=== PATIENT | female | born 1980 | race Caucasian/White ===

== ENCOUNTER 2022-11-04 19:21 | Emergency (ER) | payer OTHER, SELFPAY ==
[2022-11-04 19:23] VITALS: BP 159/109; PULSE 86; RESP 18; TEMP 35.9; O2SAT 98
--- NOTE | 2022-11-04 20:10 | RAD_ITS ---
INDICATION: chest pain EXAMINATION/TECHNIQUE: X-RAY - XR Chest 1 View COMPARISON: None. FINDINGS: LINES/DEVICES: None. LUNGS: No consolidation, edema or effusion. No pneumothorax. MEDIASTINUM AND CARDIOVASCULAR STRUCTURES: Cardiac silhouette not enlarged. Central airways and mediastinal contour are unremarkable. BONES AND SOFT TISSUES: Unremarkable. RAD/Chest 1 View (Portable) IMPRESSION: No radiographic evidence of acute cardiopulmonary disease. Electronically Signed: Matt Knight MD at 20:46 EDT ,
[2022-11-04 20:14] LABS: Absolute Lymphocyte Count 2.42 X10^3/uL (0.83-4.51); Absolute Neutrophil Count 3.7 X10^3/uL (2.0-7.7); Basophil# 0.03 X10^3/uL; Basophil% 0.5 % (0-1); Eosinophil# 0.12 X10^3/uL; Eosinophils% 1.8 % (0-5); Hematocrit 35.6 % (37-47); Hemoglobin 11.9 g/dL (12.0-15.0); Lymphocyte # 2.42 X10^3/ul (0.83-4.51); Lymphocyte % 36.6 % (19-41); Mean Corp Hgb Conc 33.4 g/dL (32-36); Mean Corpuscular Hgb 30.4 pg (27.0-32.0); Mean Platelet Vol. 9.5 fl (6.2-12.0); Monocyte# 0.32 X10^3/uL; Monocyte% 4.8 % (0-10); NRBC Flagged by Analyzer 0 % (0-5); Platelet Count 356 K/mm3 (150-450); RBC Distribution Width CV 12.6 % (11.6-14.6); Red Blood Count 3.91 M/mm3 (4.2-5.4); White Blood Count 6.6 K/mm3 (4.4-11.0)
[2022-11-04 20:21] LABS: Prothrombin Time (Protime)PT. 12.8 SECONDS (11.7-14.9)
[2022-11-04 20:40] LABS: Anion Gap 4 (5-15); BUN 10 mg/dL (7-18); BUN/Creat Ratio 12.3 RATIO (10-20); Calcium,Total 9.5 mg/dL (8.5-10.1); Chloride 109 mmol/L (98-107); Creatinine, Serum 0.81 mg/dL (0.55-1.02); EST Glomerular Filtration Rate 83 mL/min (>60); Est Glom Filt Rate - Afr Amer 100 mL/min (>60); Glucose 98 mg/dL (74-106); Potassium 3.8 mmol/L (3.5-5.1); Sodium Level 139 mmol/L (136-145); Troponin-I HS (w/2H Reflex) < 3 pg/mL (3.0-54.0)
[2022-11-04 20:47] VITALS: BMI 28.0
[2022-11-04 21:10] LABS: AST(SGOT) 12 U/L (15-37); Alanine Aminotransfer ALT/SGPT 19 U/L (13-56); Albumin, Serum 4.4 g/dL (3.2-5.0); Alkaline Phosphatase 67 U/L (45-117); Bilirubin, Direct 0.12 mg/dL (0.00-0.30); Globulin 3.5 g/dL (2.2-4.2); Lipase 23 U/L (13-75); Protein, Total 7.9 g/dL (6.4-8.2)
[2022-11-04] MEDS: Ondansetron 4 MG/2 ML Vial IV (21:47)
[2022-11-04] MEDS: Morphine 4 MG/ML Syringe IV (21:47)
[2022-11-04] MEDS: Ketorolac 15 MG/ML Vial IV (21:47)
--- NOTE | 2022-11-04 21:48 | EDS_ITS ---
HPI HPI - GI History of Present Illness Chief Complaint: Chest Other Narrative Narrative: 42-year-old female presenting with right rib pain. She states has had this for a few months. She states he previous had a chest CT which showed some gallstones. She decided to do some homeopathic therapy on some kind of medication that would dissolve the gallstones. She states that the pain has never gone away. It is worse over the last 3 days. She has nausea and v omiting. She has intermittent pain which is sharp. She states she has a history of kidney stones. Denies fever or chills. No urinary complaints. She is currently on her menstrual period. [facility] Medical History Asthma Gallstones Gastritis Kidney stones Migraine Neuroendocrine tumor of anus Umbilical hernia Home Medications baclofen 10 mg tablet 10 mg PO TID 11/04/22 [History Last Taken Unknown] dextroamphetamine-amphetamine 20 mg tablet (Adderall) 20 mg PO DAILY 11/04/22 [History Last Taken Unknown] eletriptan 40 mg tablet (Relpax) See Rx Instructions PO .COMPLEX 11/04/22 [History Last Taken Unknown] Allergy/AdvReac Type Severity Reaction Status Date / Time No Known Allergies Allergy Verified 11/04/22 19:22 Surgical History History of renal stent Hx of breast augmentation Social History Smoking Status: Never smoker ROS ROS ED Constitutional Constitutional ED: Denies chills, fever(s) or sweats Eyes Eyes: Denies blurry vision or change in vision ENT ENT ED: Denies ear pain or sore throat Cardiovascular Cardiovascular: Denies chest pain, palpitations or racing heartbeat Respiratory/Chest Respiratory/Chest: Denies cough, dyspnea or sputum Gastrointestinal Gastrointestinal: Reports abdominal pain, nausea and vomiting; Denies constipation or diarrhea Genitourinary Genitourinary ED: Reports other Details: Currently on menstrual ; Denies dysuria, hematuria or urinary frequency Musculoskeletal Musculoskeletal: Denies arthralgias, myalgias or neck pain Integumentary Denies abscess, Abrasions or rash Neurologic Neurologic: Denies headache(s), paresthesias or weakness Psychiatric Psychiatric: Denies anxiety, depression, suicidal ideation or suicidal thoughts Endocrine Endocrinology: Denies polydipsia or polyuria EXAM Physical Exam Const Vital Signs: 11/04/22 19:23 11/04/22 20:47 11/04/22 22:04 Temperature 96.7 F L Temperature Source Oral Pulse Rate 86 74 Respiratory Rate 18 14 Blood Pressure 159/109 H 135/54 H Blood Pressure Mean 125 81 Pulse Ox 98 96 Oxygen Delivery Method Room Air Room Air Room Air 11/04/22 22:34 Temperature Temperature Source Pulse Rate 63 Respiratory Rate 16 Blood Pressure 131/60 H Blood Pressure Mean Pulse Ox 98 Oxygen Delivery Method HEENT Reports TM's clear and moist mucous membranes normocephalic and atraumatic Tympanic Membrane ED: Yes TM's clear Eyes General Eye ED: Negative for pale conjunctiva or scleral icterus Resp normal respiratory effort and clear to auscultation bilaterally Auscultation: Negative for rales, rhonchi or wheezes Cardio regular rate and regular rhythm GI non-tender and non-distended Back/Spine General Back: CVA tenderness right Neuro CN's II-XII intact bilaterally and moves all extremities Sensorium / Orientation: alert Motor Exam: strength 5/5 throughout Psych mental status grossly normal Skin no wounds MDM MDM MDM Narrative Medical decision making narrative: 42-year-old female presenting with right-sided flank pain. Differential includes pneumonia, rib pain, gallstones, kidney stones, gastritis, colitis, constipation, pyelonephritis, UTI. Patient medicated with morphine, Zofran, Toradol. She does have CVA tenderness without maricarmen abdominal pain. Lungs clear to auscultation bilaterally. CBC will be obtained to assess white blood cell count, hemoglobin, platelets. BMP to assess renal function, electrolytes. LFTs to assess liver function. Lipase to assess for pancreatitis. Urinalysis to assess for UTI or occult blood. EKG and high-sensitivity troponin rule out ACS. Chest x-ray obtained to rule out pneumonia. CBC, BMP, lipase unremarkable. High-sensitivity troponin within normal limits. EKG shows a normal sinus rhythm with ventricular rate of 71 bpm without sign of ischemic change or ectopy on my interpretation. Chest x-ray my interpretation shows no acute process. Currently waiting for urinalysis and CT of the abdomen pelvis without contrast to assess for kidney stone. Patient is PERC negative so I do not believe she needs a PE study. CT then pelvis shows diffuse constipation interpreted by the radiologist. Lab work is all within normal limits. High- sensitivity troponin less than 3. I do not believe she is a repeat troponin. CBC and CMP unremarkable. Urine shows occult blood however the patient is also her menstrual period. There is no evidence of kidney stones on CT. Patient counseled on findings. She is counseled to use MiraLAX at home for constipation. Return precautions were discussed. Impression: 1. Right flank pain 2. constipation Lab Data Attestation: I reviewed the patient's lab results. Labs: Laboratory Results - last 24 hr 11/04/22 11/04/22 20:00 21:58 WBC 6.6 RBC 3.91 L Hgb 11.9 L Hct 35.6 L MCV 91.0 MCH 30.4 MCHC 33.4 RDW Std Deviation 41.0 RDW Coeff of [place] 12.6 Plt Count 356 MPV 9.5 Immature Gran % (Auto) 0.300 Neut % (Auto) 56.0 Lymph % (Auto) 36.6 [place] % (Auto) 4.8 Eos % (Auto) 1.8 Baso % (Auto) 0.5 Absolute Neuts (auto) 3.7 Absolute Lymphs (auto) 2.42 Nucleated RBC % 0 PT 12.8 INR 1.0 Sodium 139 Potassium 3.8 Chloride 109 H Carbon Dioxide 26.0 Anion Gap 4 L BUN 10 Creatinine 0.81 Est GFR (MDRD) Af Amer 100 Est GFR (MDRD) Non-Af 83 BUN/Creatinine Ratio 12.3 Glucose 98 Calcium 9.5 Total Bilirubin 0.30 Direct Bilirubin 0.12 AST 12 L ALT 19 Alkaline Phosphatase 67 Troponin I High Sens < 3 L Total Protein 7.9 Albumin 4.4 Globulin 3.5 Lipase 23 Urine Color Yellow Urine Clarity Clear Urine pH 6.0 Ur Specific [place] 1.015 Urine Protein 30 H Urine Glucose (UA) Normal Urine Ketones Negative Urine Occult Blood 250 H Urine Nitrite Negative Urine Bilirubin Negative Urine Urobilinogen Normal Ur Leukocyte Esterase 25 H Urine RBC 0-5 SEEN Urine WBC 0 SEEN Ur Squamous Epith Cells 0-5 SEEN Urine Bacteria 0 SEEN Urine Mucus 0 SEEN Radiography Diagnostic Testing: Clinical Impression(s) from Imaging Studies Chest X-Ray 11/04/22 20:10 IMPRESSION: No radiographic evidence of acute cardiopulmonary disease. Electronically Signed: Matt Knight MD at 20:46 EDT , Abdomen/Pelvis CT 11/04/22 22:06 IMPRESSION: Moderate to marked diffuse fecal retention. Tiny nonobstructing left renal stone. No other definite acute or significant abnormality seen. Electronically Signed: Deyvi Plascencia MD at 22:27 EDT , Discharge Plan Triage Chief Complaint: Chest Other ED Provider: Chidi Cantu Dx/Rx/DC Orders Instructions: ED Constipation (Adult) Prescriptions: No Action dextroamphetamine-amphetamine [Adderall] 20 mg tablet 20 mg PO DAILY baclofen 10 mg tablet 10 mg PO TID eletriptan [Relpax] 40 mg tablet See Rx Instructions .ROUTE .COMPLEX Rx Instructions: take 1 tab at onset of headache; if no relief, may repeat 1 tab after at least 2 hrs; max = 2 tabs/24 hrs Primary Care Provider: Care Physician,No Primary Referrals: Chandrakant Rothman DO [Med Staff - Active Staff] - 3-5 Days Care Physician,No Primary [Primary Care Provider] - Disposition Disposition: Home, Self Care Discharge Date/Time: 11/04/22 22:40
[2022-11-04 22:04] VITALS: BP 135/54; PULSE 74; RESP 14; O2SAT 96
[2022-11-04 22:06] LABS: Bacteria 0 SEEN /hpf (None Seen); Mucous, Urine 0 SEEN /hpf (<or=2+); White Blood Cells 0 SEEN /hpf (0-5)
--- NOTE | 2022-11-04 22:06 | CT_ITS ---
STUDY: CT ABDOMEN AND PELVIS WITHOUT CONTRAST REASON FOR EXAM: Female, 42 years old. right flank pain RADIATION DOSAGE (If Supplied By Facility): CTDIvol = ( 7.01 ) mGy, DLP = ( 357.15 ) mGycm TECHNIQUE: Transaxial images were obtained from the dome of the diaphragm to the symphysis pubis without oral contrast, and without intravenous contrast. Sagittal and coronal images were reconstructed. Individualized dose optimization techniques were used for this CT. COMPARISON: None. FINDINGS: The visualized lung bases are unremarkable. The visualized portions of the heart are within normal limits. Normal liver. Normal gallbladder and extrahepatic biliary system. Normal spleen. Normal pancreas. Normal bilateral adrenal glands. Normal right kidney. Left kidney has a 2 mm nonobstructing lower pole stone, otherwise normal left kidney. Evaluation of the GI tract is limited by absence of oral contrast. Cannot exclude stomach wall thickening. No dilated loops of bowel or evidence for obstruction. Cannot exclude segmental thickening of the [place]erguson of the small or large bowel. Cannot exclude enteritis or colitis. Moderate to marked diffuse fecal retention. Appendix within normal limits. Normal abdominal aorta. Normal inferior vena cava. Normal retroperitoneum. Normal urinary bladder. Normal visualized uterus. Normal abdominal wall. Normal osseous structures. CT/Abdomen/Pelvis without Cont IMPRESSION: Moderate to marked diffuse fecal retention. Tiny nonobstructing left renal stone. No other definite acute or significant abnormality seen. Electronically Signed: Deyvi Plascencia MD at 22:27 EDT ,
[2022-11-04 22:07] LABS: Color, Urine Yellow (Yellow); Glucose, Dipstick Normal (Normal); Ketone-Dipstick Negative (Negative); Leukocyte Esterase-Dipstick 25 /ul (Negative); Nitrite-Dipstick Negative (Negative); Occult Blood-Urine 250 /ul (Negative); Protein-Dipstick 30 mg/dl (Negative); Specific Gravity, Urine 1.015 (1.002-1.030); Urine Bilirubin Dipstick Negative (Negative); Urine Clarity Clear (Clear); Urine Urobilinogen Normal (Normal)
[2022-11-04 22:09] LABS: Reflex Troponin-HS? (from REC) Y
[2022-11-04 22:27] LABS: Red Blood Cells-Urine 0-5 SEEN /hpf (0-5); Squamous Epithelial Cells - UA 0-5 SEEN /hpf (5-10)
[2022-11-04 22:34] VITALS: BP 131/60; PULSE 63; RESP 16; O2SAT 98
== END 2022-11-04 22:40 | disposition home or self-care (01) ==
PROVIDERS: Emergency Provider Student in an Organized Health Care Education/Training Program; Visit Provider Student in an Organized Health Care Education/Training Program
DX: R10.9 Unspecified abdominal pain (principal); K59.00 Constipation, unspecified
CPT/HCPCS: 71045; 74176; 80048; 80076; 81001; 83690; 84484; 85025; 85610; 93005; 96374; 96375; 99284; A4216; J2405